=== PATIENT | female | born 1960 | race African-American/Black ===

== ENCOUNTER → 2017-07-12 | Outpatient (CLI) | payer MEDICARE ==
[~2017-07-12] MED LIST: ATACAND32 MG PO; CIPRO500 MG PO; CLEOCIN HCL300 MG PO; CYCLOBENZAPRINE10 MG PO; DIFLUCAN150 MG PO; FLAGYL500 MG PO; LEVOTHROID100 MC1 PO; LEVOTHYROXIN0.088 MG PO; LEXAPRO 10 MG T10 M2 PO; NORCO 5-325 TA1 EACH PO; ONDANSETRON HCL4 M2 PO; SYNTHROID100 MCG PO; TEGRETOL200 MG PO; URSODIOL250 MG PO; XANAX 0.5 MG0.5 M1 PO; ZOFRAN ODT4 MG PO; ZOLOFT25 MG PO; [UNRECOGNIZED DRUG - REMARK]
== END ==
LOC: M.CT 10:36
DX: M16.12 Unilateral primary osteoarthritis, left hip (principal)

== ENCOUNTER → 2017-07-26 | Outpatient (CLI) | payer MEDICARE | LOC: M.MRI 10:25 | DX: R10.11 Right upper quadrant pain (principal); R79.89 Other specified abnormal findings of blood chemistry; K74.3 Primary biliary cirrhosis; Z90.49 Acquired absence of other specified parts of digestive tract ==

== ENCOUNTER → 2017-08-18 | Outpatient (CLI) | payer MEDICARE | LOC: M.MRI 08-11 07:30 | DX: S73.102A Unspecified sprain of left hip, initial encounter (principal); M16.12 Unilateral primary osteoarthritis, left hip; X58.XXXA Exposure to other specified factors, initial encounter; Y93.89 Activity, other specified; Y92.89 Other specified places as the place of occurrence of the external cause; Y99.8 Other external cause status ==

== ENCOUNTER 2018-04-07 06:33 | Inpatient (IN) | payer MEDICARE ==
[~2018-04-07] VITALS: Ht 157.5 cm; Wt 83.9 kg
--- NOTE | ~2018-04-07 | PROC ---
[address] [address] PROCEDURE REPORT Name: ILA PARRISH Room: [address] IN M.R.#: [id number] Admission: 04/07/18 Attend Phys: Calixto Hollis Discharge: 04/11/18 Date of : 56 Report #: [id number] THIS REPORT FOR: //name// For GI report, please see the Provation report in Perceptive 7 content. By: 0702Medical Records Staff ANDREINA /NELLI
--- NOTE | ~2018-04-07 | CON ---
[facility] [address] [place] [address] CONSULTATION Name: ILA PARRISH Room: [address] IN .R.#: [id number] Admission: 04/07/18 Attend Phys: Calixto Hollis Discharge: Date of : 56 Report #: [id number] THIS REPORT FOR: //name// CC: Brian Rubi DATE OF SERVICE: 04/08/2018 INDICATION FOR CONSULT: Elevated liver enzymes and abdominal pain. HISTORY OF PRESENT ILLNESS: This is a 58-year-old female who is well known to me as we have cared for her in our practice for a number of years. The patient with history of primary biliary cirrhosis who is on ursodiol presents with abdominal pain and constipation. She reports that since her hip surgery 8 weeks ago, she has not been able to get her bowels regular. She had some laxative last night and had a small bowel movement, which improved her pain, but has not completely resolved it. Reviewing her liver enzymes, her LFTs are and alkaline phosphatase are elevated. Abdominal ultrasound was essentially unremarkable. PAST MEDICAL HISTORY: Significant for history of primary biliary cirrhosis, hypothyroidism, depression, history of bowel obstruction, hysterectomy, hypertension, left hip replacement, foot and ankle surgery, appendectomy, history of brain tumor and GERD. ALLERGIES: Significant to PROCHLORPERAZINE. MEDICATIONS: Please refer to MAR. SOCIAL HISTORY: The patient lives at home. Denies tobacco or alcohol use. FAMILY HISTORY: Negative for GI malignancies. PHYSICAL EXAMINATION: VITAL SIGNS: Reveals blood pressure 134/75, respirations 16, pulse 88, temperature 98.5. LUNGS: Clear. CARDIOVASCULAR: Regular. ABDOMEN: Soft, tender to palpation in all 4 quadrants. Bowel sounds are positive. NEUROLOGIC: The patient is alert, oriented x 3. There is no focal neurologic deficit. LABORATORY DATA: Reveal sodium of 140, potassium 4.1, BUN is 10, creatinine 0.9, glucose is 144, AST is 159, ALT 143 with alkaline phosphatase of 313, total [facility] [address] [place] [address] CONSULTATION Name: ILA PARRISH Room: [address]#: [id number] Admission: 04/07/18 Attend Phys: Calixto Hollis Discharge: Date of : 56 Report #: [id number] bilirubin is 0.9. WBC is 8.2 with hemoglobin of 12.7 and platelets of 266. IMAGING: Abdominal ultrasound was performed, which shows absent gallbladder and otherwise unremarkable. ASSESSMENT AND PLAN: The patient with history of primary biliary cirrhosis who presents with elevated liver enzymes and generalized abdominal pain and constipation. I believe that her nausea and abdominal pain is from her constipation. She also has gastroesophageal reflux disease, which I believe is complicated and worsened by her severe constipation. If her symptoms of gastroesophageal reflux disease persist, we will consider upper endoscopy. Note that she had a colonoscopy back in June of 2014. This was significant for scattered diverticula and internal hemorrhoids. I will also recommend liver biopsies to assess her elevated liver enzymes as she tells me that she has been on ursodiol. We want to make sure that she has not developed autoimmune hepatitis in addition to her PBC. By: 1305 [id number] Burton MD /nt
[~2018-04-07 06:33] MED LIST changes: -LEVOTHYROXIN0.088 MG PO; +Synthroid 0.088 MG PO
[2018-04-07 06:46] VITALS: BP 164/84
[2018-04-07 07:00] LABS: HEMATOCRIT 38.1 % (37.0-47.0); HEMOGLOBIN 12.7 gm/dL (12.0-15.0); MCH 25.2 pg (26.0-34.0); MCHC 33.3 g/dL (28.0-37.0); MCV 75.8 fL (80.0-100.0); MPV 8.3 fl. (7.2-11.1); NUCLEATED RBCS 0 /100WBC; PLATELET COUNT* 266 thou/uL (150-400); RBC 5.03 mil/uL (4.20-5.00); RDW-CV 14.2 % (10.5-14.5); WBC 8.2 thou/uL (4.0-11.0)
[2018-04-07 07:09] LABS: CALCIUM 9.5 mg/dL (8.5-10.1); CREATININE 0.9 mg/dL (0.6-1.3); POTASSIUM 4.1 mmol/L (3.5-5.1)
[2018-04-07 07:14] LABS: ALBUMIN 3.8 g/dL (3.4-5.0); TOTAL BILIRUBIN 0.9 mg/dL (<0.1-1.0); TOTAL PROTEIN 8.2 g/dL (6.4-8.2)
--- NOTE | 2018-04-07 07:21 | NUR ---
PT REPORTS SHE HAS BEEN FEELING DIZZY. NON-SKID SOCKS WERE PLACED ON PT'S FEET, WARM BLANKET GIVEN TO PATIENT, FLUIDS STARTED AND CALL LIGHT GIVEN TO PATIENT. PT HAS FAMILY AT BEDSIDE, AND PT IS HOOKED UP TO PULSE OX AND CARDIAC MONITORS IN ROOM.
[2018-04-07 07:24] LABS: ABSOLUTE LYMPHOCYTES 0.6 thou/uL (0.8-5.3); ABSOLUTE MONOCYTES 0.2 thou/uL (0.0-1.2); ABSOLUTE NEUTROPHILS 7.4 thou/uL (1.6-8.1)
[2018-04-07 07:25] LABS: ANISOCYTOSIS 1+; PLATELET ESTIMATE ADEQUATE; POIKILOCYTOSIS 1+
[2018-04-07 07:39] LABS: LIPASE 182 U/L (73-393); TROPONIN-I LEVEL <0.06 ng/mL (<0.06)
[2018-04-07 07:51] LABS: URINE BILIRUBIN NEGATIVE (Negative); URINE BLOOD 2+ (Negative); URINE CLARITY CLEAR; URINE COLOR YELLOW; URINE GLUCOSE-RANDOM NEGATIVE (Negative); URINE KETONES NEGATIVE (Negative); URINE LEUKOCYTES-REFLEX NEGATIVE (Negative); URINE NITRITE-REFLEX NEGATIVE (Negative); URINE PROTEIN NEGATIVE (Negative); URINE UROBILINOGEN 0.2 E.U./dl (0.2-1.0)
[2018-04-07 07:59] LABS: SQUAMOUS 4-10 Moderate /LPF (0-3)
[2018-04-07 08:00] LABS: CASTS None Seen /LPF (None Seen); CRYSTALS None Seen /LPF (None Seen); MUCUS 4-6 Moderate strn/LPF (None Seen); URINE RBC 3-10 Few /HPF (0-2); URINE WBC-REFLEX 0-5 Rare /HPF (0-5)
[2018-04-07 08:25] VITALS: BP 173/75
[2018-04-07 08:45] VITALS: BP 158/86
[2018-04-07 12:14] VITALS: BP 120/60
--- NOTE | 2018-04-07 12:50 | NUR ---
INITIAL ASSESSMENT: Pt evaluated for d/c planning needs. Reviewed chart and spoke with nurse and pt. Pt is alert and oriented. Pt plans on returning home with family on d/c from hospital. Will remain available to assist as needed.
[2018-04-07 17:02] VITALS: BP 156/92
--- NOTE | 2018-04-07 18:53 | NUR ---
ALERT AND ORIENTED X4. UP WITH ASSIST X1 WITH GAIT BELT TO THE BATHROOM. IV IS PATENT AND INFUSING. PAIN BEING MANAGED WITH IV AND PO PAIN MEDICATION. NAUSEA BEING MANAGED WITH IV NAUSEA MEDICATION. NPO AT THIS TIME. VSS ON ROOM AIR. FALL PRECAUTIONS IN PLACE. HOURLY ROUNDS HAVE BEEN MAINTAINED THROUGHOUT SHIFT. CALL LIGHT IS WITHIN REACH.
[2018-04-07 20:45] VITALS: BP 136/77
--- NOTE | 2018-04-08 06:12 | NUR ---
PATIENT SLEPT WELL OFF AND ON DURING THE NIGHT. VSS ON RA. PATIENT HAS REMAINED NPO. MEDICATIONS GIVEN ORDERED AND CHARTED. NO C/O NAUSEA. IV IN LEFT AC-NS @ 100ML/HR. PATIENT INSTRUCTED TO USE CALL LIGHT WHEN NEEDING ASSISTANCE. HOURLY ROUNDS MADE. WILL CONTINUE WITH PLAN OF CARE AND NURSING TO MONITOR.
[2018-04-08 08:20] VITALS: BP 134/75
--- NOTE | 2018-04-08 17:55 | NUR ---
PT REMAINED ALERT AND ORIENTED THIS SHIFT. PT WILL HAVE LIVER BIOPSY COMPLETED TUESDAY. PT C/O NAUSEA, ZOFRAN GIVEN ORDERED. PT ABD DISTENDED AND PT C/O CONSTIPATION, MAG CITRATE ORDERED AND SIMETHICONE SCHEDULED. FALL RISK PRECAUTIONS IN PLACE. HOURLY ROUNDING COMPLETED. WILL CONTINUE TO MONITOR.
[2018-04-08 20:00] VITALS: BP 159/71
[2018-04-09 04:06] LABS: ALBUMIN 2.9 g/dL (3.4-5.0); DIRECT BILIRUBIN 0.1 mg/dL (<0.1-0.3); TOTAL BILIRUBIN 0.2 mg/dL (<0.1-1.0); TOTAL PROTEIN 6.3 g/dL (6.4-8.2)
--- NOTE | 2018-04-09 04:55 | NUR ---
PT REMAINED A&Ox4. VITALS STABLE. PT ON CLEAR LIQUID DIET. IV IN L AC PATENT, INFUSING. PAIN AND NAUSEA CONTROLLED WITH CURRENT REGIMEN. UP WITH STAND BY ASSIST. PLANS TO GET LIVER BIOPSY TUESDAY. HOURLY ROUNDING COMPLETE. CALL LIGHT WITHIN REACH. WILL CONTINUE TO MONITOR.
[2018-04-09 08:15] VITALS: BP 156/81
[2018-04-09 16:25] VITALS: BP 162/89
--- NOTE | 2018-04-09 17:33 | NUR ---
ALERT AND ORIENTED X4. UP WITH STAND BY ASSIST IN ROOM. IV IS PATENT AND INFUSING. DENIES NEED FOR PAIN MEDICATION THIS SHIFT. NAUESA BEING MANAGED WITH IV NAUSEA MEDICATION. TOLERATING DIET. VSS ON ROOM AIR. HOURLY ROUNDS HAVE BEEN MAINTAINED THROUGHOUT SHIFT. CALL LIGHT IS WITHIN REACH. NURSING WILL CONTINUE TO MONITOR.
[2018-04-09 20:00] VITALS: BP 134/51
[2018-04-10 04:27] LABS: ABSOLUTE EOSINOPHILS 0.1 thou/uL (0.0-0.7); ABSOLUTE LYMPHOCYTES 1.9 thou/uL (0.8-5.3); ABSOLUTE MONOCYTES 0.4 thou/uL (0.0-1.2); ABSOLUTE NEUTROPHILS 2.5 thou/uL (1.6-8.1); BASOPHILS 0.3 %; EOSINOPHILS 1.7 %; HEMATOCRIT 32.1 % (37.0-47.0); HEMOGLOBIN 10.8 gm/dL (12.0-15.0); LYMPHOCYTES 38.9 %; MCH 25.8 pg (26.0-34.0); MCHC 33.7 g/dL (28.0-37.0); MCV 76.6 fL (80.0-100.0); MONOCYTES 7.6 %; MPV 8.5 fl. (7.2-11.1); NUCLEATED RBCS 0 /100WBC; PLATELET COUNT* 225 thou/uL (150-400); POLYS 51.5 %; RBC 4.19 mil/uL (4.20-5.00); RDW-CV 14.7 % (10.5-14.5); WBC 4.9 thou/uL (4.0-11.0)
[2018-04-10 04:42] LABS: APTT 25.8 Seconds (25.0-31.3)
--- NOTE | 2018-04-10 04:44 | NUR ---
PT REMAINED A&Ox4. VITALS STABLE. UP STAND BY ASSIST. PT STATED WANTED TO GO TO THE BATHROOM BY HERSELF AND BED ALARMS OFF DURING THE SHIFT. FALL BAND ON, YELLOW SOCKS ON, EDUCATED ON FALL RISKS. IV IN L AC PATENT, INFUSING. PAIN CONTROLLED WITH NORCO. NAUSEA CONTROLLED WITH ZOFRAN. HOURLY ROUNDING COMPLETE. CALL LIGHT WITHIN REACH. AT BEDSIDE. WILL CONTINUE TO MONITOR.
[2018-04-10 08:25] VITALS: BP 165/92
[2018-04-10 09:43] VITALS: BP 165/92
[2018-04-10 10:18] VITALS: BP 165/92
[2018-04-10 12:05] VITALS: BP 143/55
--- NOTE | 2018-04-10 12:18 | NUR ---
PT RETURNED FROM EGD. PT IS ALERT AND ORIENTED. ON ROOM AIR. PT IS NPO, ORDERS FOR LIVER BIOPSY TODAY. FALL RISK PRECAUITONS IN PLACE. HOURLY ROUNDING COMPLETED. WILL CONTINUE TO MONITOR.
--- NOTE | 2018-04-10 14:11 | NUR ---
JAVA LEAD SPOKE TO THE PATIENT TO DISCUSS DISCHRGE PLANNING NEEDS. PATIENT INFORMS THAT THE PLAN REMAINS TO RETURN HOME WITH FAMILY AT D/C, AND DOES NOT ANTICIPATE ANY DISCHARGE PLANNING NEEDS. CM WILL REMAIN AVIALABLE TO ASSIST AND FOLLOW NEEDED.
--- NOTE | 2018-04-10 15:48 | EKG ---
[place] [address] ELECTROCARDIOGRAM REPORT Name: ILA PARRISH Room: [address] ADM IN M.R.#: [id number] Admission: 04/07/18 Attend Phys: Calixto Hollis Discharge: Date of : 56 Report #: [id number] THIS REPORT FOR: //name// [facility] Test Date: 2018-04-10 Test Time: 09:50:46 Pat Name: ILA PARRISH Department: Room: [address] Gender: F Imcu Specialist: : 1960 Requested By: Eli Burton Order Number: [id number] Kwaku MD: Alex Hollins Measurements Intervals [place] Rate: 68 P: 44 MA: 154 QRS: 53 QRSD: 98 T: 25 QT: 423 QTc: 450 Interpretive Statements Sinus rhythm Compared to ECG 05/11/2015 17:37:03 rate has slowed Electronically Signed On 04-10-2018 15:48:01 PRODUCTION MAINTENANCE TECHNICIAN by Alex Hollins [email or web address] <ELECTRONICALLY SIGNED> By: Alex Hollins MD, [facility] 04/10/18 1548 D: 01/949 9 Alex Hollins MD, FACC /EPI
[2018-04-10 16:00] VITALS: BP 139/60
[2018-04-10 16:10] LABS: ANA INTERPRETATION Negative (Negative)
--- NOTE | 2018-04-10 17:04 | NUR ---
PT REMAINED ALERT AND ORIENTED. PT HAD AN EGD COMPLETED TODAY, FOUND SMALL HIATAL HERNIA. PT DENIED ANY N/V OR PAIN THIS SHIFT. PT IS ON REGULAR DIET. LIVER BIOPSY TOMORROW SCHEDULED, NPO AFTER MIDNIGHT. FALL RISK PRECAUTIONS IN PLACE. HOURLY ROUNDING COMPLETED. WILL CONTINUE TO MONITOR.
[2018-04-10 19:20] VITALS: BP 155/80
--- NOTE | 2018-04-10 22:02 | NUR ---
PT ASSESSMENT COMPLETE, REFER TO COMPUTER CHARTING FOR DETAILS. PT C/O ABD PAIN, PRN HDROCODONE GIVEN WITH GOOD RESULTS. PT ALSO C/O NAUSEA, ORN IV ZOFRAN GIVEN WITH GOOD RESULTS. VSS. PT UP TO BR WITH STEADY GAIT. HOURLY ROUNDING FOR PT SAFETY. CLWR.
[2018-04-11] VITALS (10 sets, daily range): BP systolic 148–164; BP diastolic 64–90
--- NOTE | 2018-04-11 06:17 | NUR ---
PT HAS REMAINED STABLE AND SLEPT T/O THIS SHIFT. NO NEW CONCERNS AT THIS TIME. HOURLY ROUNDING FOR SAFETY.
[2018-04-11] MEDS ORDERED: HYDROCODON-ACE1 EAC7 PO (10:33)
[2018-04-11] MEDS ORDERED: SENNA PLUS TAB1 EACH PO (10:33)
[2018-04-11] MEDS ORDERED: PANTOPRAZOLE SO40 M1 PO (10:33)
[2018-04-11] MEDS ORDERED: MIRALAX17 GM PO (10:33)
--- NOTE | 2018-04-11 16:05 | NUR ---
ASSUMED CARE OF PATIENT AT APPROX 0730. ALERT AND ORIENTED X4. ASSESSMENT COMPLETED AND CHARTED. VSS ON ROOM AIR. NO COMPLAINTS OF NAUSEA, PAIN, OR SOA. LIVER BIOPSY COMPLETED. PATIENT VITALS MONITORED AND REMAINED STABE AFTER BIAOPSY. NO COMPLAINTS OF INCREASED PAIN AT BIOPSY SITE OR COMPLAINTS OF SOA. PATIENT DISCHARGED AT APPROX 1300 WITH ALL PERSONAL BELONGINGS, PRESCRIPTIONS AND DISCHARGE INFORMATION.
--- NOTE | 2018-04-14 12:05 | PATH ---
[place] [address] PATHOLOGY RPT PROCEDURE Name: ILA PARRISH Room: [address] IN [facility]#: [id number] Admission: 04/07/18 Date of : 56 Discharge: 04/11/18 Report #: [id number] Path Case #: [id number] [facility] Accession Number: [id number] . 01 Material submitted: . LIVER BIOPSY . 01 Clinical history: . History of elevated LFTs, biliary cirrhosis This patient is reported to have a history of primary biliary cirrhosis presently on Ursodiol who presents with abdominal pain and constipation and elevated liver enzymes (consultation report by Dr. Eli Orantes dated 04/08/2018). (04/07/2018) AST 159, T-bili 0.9, alk phos 313, ALT 143, GGTP 201 (04/09/2018) AST 34, T-bili 0.2, alk phos 212, ALT 68, HERNANDEZ direct-negative, mitochondria antibody less than 20, smooth muscle antibody 11/negative. . 02 Diagnosis: Liver biopsy: - Benign liver with minimal bile duct injury, minimal lobular inflammation, less than 5% steatosis, mild sinuosoidal dilatation and no evidence of fibrosis. See comment. (WOOD:luci; 04/13/2018) QMS/04/13/2018 . 02 Comment: The biopsies reveal benign liver with easily identified, mostly normal bile ducts and, at most minimal injury evidenced by a rare intraductal neutrophil and without significant fibrosis or steatosis seen. Minimal lobular inflammation is noted and there are no significant plasma cells or eosinophils or granulomas seen. Properly controlled special stains performed on each of blocks A1 through A3 all show the same findings as follows: . PAS with and without diastase: No positive globules. Iron: No stainable increase. Reticulin: Normal hepatic plates. Trichrome: No significant fibrosis. . The current findings appear to be improved from that reported in the prior liver biopsy performed around 12/2008 (report [id number]) and there is no evidence of autoimmune hepatitis. The current findings may be related to drugs/medications. . Reviewed with Dr. Inna Chaney, who agrees with the diagnosis. (OWOD:luci; 04/13/2018) . [place] [address] PATHOLOGY RPT PROCEDURE Name: ILA PARRISH Room: [address] IN M.R.#: [id number] Admission: 04/07/18 Date of : 56 Discharge: 04/11/18 Report #: [id number] Path Case #: [id number] . . . . . . . . . . . . . . . . . . 02 Electronically signed: . Declan William MD, Pathologist NPI- [id number] . 01 Gross description: . The specimen is received in formalin, labeled "Lindsey, Ila, liver BX", are several trevino-brown needle cores ranging from 0.4 cm up to 1.5 cm in length with an average 0.1 cm diameter. The specimen is entirely submitted in A1-A3. ([facility]; 04/11/2018) SHS/ . 02 Pathologist provided ICD-10: K76.9 . 02 CPT . 036626, 745794, 868895, 918377, 221145, 369783, 553129, 313058, 783209, 352798, 581766, 694832, 703433 Specimen Comment: A courtesy copy of this report has been sent to Specimen Comment: [phone], , , . Specimen Comment: Report sent to ,DR ORANTES,DR ELDER / DR WILKES Specimen Comment: A duplicate report has been generated due to demographic updates. Performed at: 01 [facility] [address], [place], [place] [id number] MD Faustino Hoffman MD Phone: [phone] Performed at: [address] [facility] [address] [id number] MD Declan William MD Phone: [phone]
== END 2018-04-11 13:00 | disposition home or self-care (01) | DRG 441 ==
LOC: M.ERS 06:33 → M.TBA-ER 08:05 → M.ORTHSURG 08:05
PROVIDERS: Emergency Medicine; Internal Medicine Gastroenterology; ADMIT Internal Medicine
PROC: 0DJ08ZZ Inspection of Upper Intestinal Tract, Via Natural or Artificial Opening Endoscopic (ICD-10-PCS; principal; 2018-04-10)
PROC: 0FB13ZX Excision of Right Lobe Liver, Percutaneous Approach, Diagnostic (ICD-10-PCS; 2018-04-11)
DX: B17.9 Acute viral hepatitis, unspecified (principal); R65.11 Systemic inflammatory response syndrome (SIRS) of non-infectious origin with acute organ dysfunction; E44.1 Mild protein-calorie malnutrition; A08.4 Viral intestinal infection, unspecified; K74.3 Primary biliary cirrhosis; K76.89 Other specified diseases of liver; Z96.642 Presence of left artificial hip joint; E03.9 Hypothyroidism, unspecified; E86.0 Dehydration; K44.9 Diaphragmatic hernia without obstruction or gangrene; F32.9 Major depressive disorder, single episode, unspecified; K21.9 Gastro-esophageal reflux disease without esophagitis; I10 Essential (primary) hypertension; K59.00 Constipation, unspecified; Z90.49 Acquired absence of other specified parts of digestive tract; Z68.33 Body mass index [BMI] 33.0-33.9, adult; Z90.710 Acquired absence of both cervix and uterus; Z88.8 Allergy status to other drugs, medicaments and biological substances

== ENCOUNTER → 2019-01-09 | Outpatient (CLI) | payer MEDICARE ==
[~2019-01-09] MED LIST changes: +HYDROCODON-ACE1 EAC7 PO; +MIRALAX17 GM PO; +PANTOPRAZOLE SO40 M1 PO; +SENNA PLUS TAB1 EACH PO
== END ==
LOC: M.CT 10:32
DX: S92.812K Other fracture of left foot, subsequent encounter for fracture with nonunion (principal); M19.072 Primary osteoarthritis, left ankle and foot; X58.XXXD Exposure to other specified factors, subsequent encounter

== ENCOUNTER → 2021-03-18 | Day surgery (SDC) | payer MEDICARE ==
[~2021-03-18] MED LIST changes: +ADVIL200 M3 PO; +ATACAND16 MG PO; +MELATONIN10 M3 PO; +PROTONIX40 M2 PO; +ZOLOFT 50 MG TA50 MG PO; +ZONEGRAN100 MG PO
--- NOTE | ~2021-03-18 | PROC ---
[address] [address] PROCEDURE REPORT Name: STNATON PARRISHEE Itzel Room: [facility]#: [id number] Admission: 03/18/21 Attend Phys: Peter Jin DO Discharge: Date of : 56 Report #: [id number] THIS REPORT FOR: cc: Brian Galvez MD, Dean L. MD [facility],Medical Records Staff ~ For GI report, please see the Provation report in Perceptive 7 content. By: 1401Medical Records Staff STEVEN /NELLI
[2021-03-18 08:56] LABS: HEMATOCRIT 36.8 % (37.0-47.0); HEMOGLOBIN 12.4 gm/dL (12.0-15.0); MCH 25.5 pg (26.0-34.0); MCHC 33.6 g/dL (28.0-37.0); MPV 7.9 fl. (7.2-11.1); RBC 4.84 mil/uL (4.20-5.00); RDW-CV 14.5 % (10.5-14.5); WBC 8.9 thou/uL (4.0-11.0)
[2021-03-18 09:02] LABS: CALCIUM 9.2 mg/dL (8.5-10.1); POTASSIUM 3.6 mmol/L (3.5-5.1)
--- NOTE | 2021-03-18 10:57 | EKG ---
[place] [address] ELECTROCARDIOGRAM REPORT Name: ILA PARRISH Itzel Room: [facility]#: [id number] Admission: 03/18/21 Attend Phys: Peter Jin, Discharge: Date of : 56 Date of Service: 03/18/[address] Report #: [id number] THIS REPORT FOR: //name// [facility] Test Date: 2021-03-18 Test Time: 09:04:44 Pat Name: ILA PARRISH Department: Room: Gender: F Long Filler Cigar Roller Machine: BENIGNO : 1960 Requested By: Peter Jin Order Number: [id number] Kwaku MD: Daniel Rojo Measurements Intervals [place] Rate: 70 P: 66 AR: 163 QRS: 64 QRSD: 97 T: 39 QT: 409 QTc: 442 Interpretive Statements Sinus rhythm Compared to ECG 04/10/2018 09:50:46 No significant changes Electronically Signed On 03-18-2021 10:57:47 PLANT ANATOMY TEACHER by Daniel Rojo [email or web address] <ELECTRONICALLY SIGNED> By: Daniel Rojo MD, [facility] 03/18/21 1057 Daniel Rojo MD, [facility] /EPI
--- NOTE | 2021-03-23 18:06 | PATH ---
[facility] [address] [place] [address] PATHOLOGY RPT PROCEDURE Name: ILA PARRISH Room: [facility]#: [id number] Admission: 03/18/21 Date of : 56 Discharge: Report #: [id number] Path Case #: [id number] [facility] Accession Number: [id number] . 01 Material submitted: . PART A: colon - PROXIMAL ASCENDING COLON POLYP X2 COLD SNARE. Modifiers: proximal, ascending PART B: colon - PROXIMAL TRANSVERSE COLON POLYP. Modifiers: transverse, proximal . 01 Clinical history: . EGD AND COLONOSCOPY DYSPHAGIA, ACID REFLUX . 02 Diagnosis: A. Proximal ascending colon polyp x 2 (cold snare): - Two tubular adenomas, negative for high-grade dysplasia. . B. Proximal transverse colon polyp: - Tubular adenoma, negative for high-grade dysplasia. (WOOD:pit; 03/23/2021) QTP 03/23/2021 1453 Local . 02 Electronically signed: . Declan William MD, Pathologist NPI- [id number] . 01 Gross description: . A. The specimen is received in formalin, labeled "Ila Parrish, proximal ascending colon polyp x 2" and consists of 2 trevino irregular tissue aggregating 0.2 x 0.1 x 0.1 cm which are submitted in toto in A1. . B. The specimen is received in formalin, labeled "Lindsey, Ila, proximal transverse colon polyp cold snare" and consists of a trevino soft irregular tissue measuring 0.3 x 0.2 x 0.1 cm which is submitted in toto in B1.([place]; 03/19/2021) DKA/ISMAA 03/19/2021 1019 Local . 02 Pathologist provided ICD-10: D12.2, D12.3 . 02 CPT . 907826, 581769 Specimen Comment: A courtesy copy of this report has been sent to [phone] Specimen Comment: [phone] Specimen Comment: Report sent to / DR WILKES Performed at: 01 [place] [address] PATHOLOGY RPT PROCEDURE Name: ILA PARRISH Itzel Room: [facility]#: [id number] Admission: 03/18/21 Date of : 56 Discharge: Report #: [id number] Path Case #: [id number] [facility] [address], [place], [place] [id number] MD Donavan Thomson MD Phone: [phone] Performed at: 02 [facility] [address], [place], [place] [id number] MD Declan William MD Phone: [phone]
== END | disposition home or self-care (01) ==
LOC: M.SUR 08:16
PROVIDERS: ATTEND Internal Medicine Gastroenterology
DX: Z12.11 Encounter for screening for malignant neoplasm of colon (principal); Z83.71 Family history of colonic polyps; D12.2 Benign neoplasm of ascending colon; D12.3 Benign neoplasm of transverse colon; K57.30 Diverticulosis of large intestine without perforation or abscess without bleeding; K64.4 Residual hemorrhoidal skin tags; K21.9 Gastro-esophageal reflux disease without esophagitis; K44.9 Diaphragmatic hernia without obstruction or gangrene; Z20.822 Contact with and (suspected) exposure to COVID-19; Z79.899 Other long term (current) drug therapy

== ENCOUNTER 2021-05-08 12:56 | Emergency (ER) | payer MEDICARE ==
[~2021-05-08] VITALS: Ht 157.5 cm; Wt 83.5 kg
[2021-05-08 13:31] LABS: URINE BILIRUBIN NEGATIVE (Negative); URINE BLOOD 1+ (Negative); URINE CLARITY CLEAR; URINE COLOR YELLOW; URINE GLUCOSE-RANDOM NEGATIVE (Negative); URINE KETONES NEGATIVE (Negative); URINE LEUKOCYTES NEGATIVE (Negative); URINE NITRITE NEGATIVE (Negative); URINE PROTEIN NEGATIVE (Negative); URINE UROBILINOGEN 0.2 E.U./dl (0.2-1.0)
[2021-05-08 13:38] LABS: BACTERIA >30 Many /HPF (None Seen); CASTS None Seen /LPF (None Seen); MUCUS >6 Heavy strn/LPF (None Seen); SQUAMOUS >10 Many /LPF (0-3); URINE RBC 0-2 Rare /HPF (0-2); URINE WBC None Seen /HPF (0-5)
[2021-05-08 13:39] LABS: CRYSTALS None Seen /LPF (None Seen)
[2021-05-08 13:51] LABS: ABSOLUTE LYMPHOCYTES 2.5 thou/uL (0.8-5.3); ABSOLUTE MONOCYTES 0.4 thou/uL (0.0-1.2); ABSOLUTE NEUTROPHILS 4.1 thou/uL (1.6-8.1); BASOPHILS 0.5 %; EOSINOPHILS 0.5 %; HEMATOCRIT 37.7 % (37.0-47.0); HEMOGLOBIN 12.4 gm/dL (12.0-15.0); LYMPHOCYTES 35.6 %; MCH 25.3 pg (26.0-34.0); MCHC 32.8 g/dL (28.0-37.0); MCV 77.2 fL (80.0-100.0); MONOCYTES 5.4 %; NUCLEATED RBCS 0 /100WBC; PLATELET COUNT* 298 thou/uL (150-400); RBC 4.88 mil/uL (4.20-5.00); RDW-CV 14.6 % (10.5-14.5)
[2021-05-08 14:03] LABS: POTASSIUM 4.2 mmol/L (3.5-5.1)
[2021-05-08 14:07] LABS: ALBUMIN 3.6 g/dL (3.4-5.0); TOTAL BILIRUBIN 0.5 mg/dL (<0.1-1.0); TOTAL PROTEIN 7.8 g/dL (6.4-8.2)
[2021-05-08] MEDS ORDERED: ZOFRAN ODT4 MG DISSOLVE (15:36)
[2021-05-08] MEDS ORDERED: HYDROCODON-ACE1 EAC7 PO (15:36)
--- NOTE | 2021-05-08 15:57 | EKG ---
[place] [address] ELECTROCARDIOGRAM REPORT Name: SHIVANISTANTONILA Itzel Room: [facility]#: [id number] Admission: 05/08/21 Attend Phys: Discharge: Date of : 56 Date of Service: 05/08/21 1438 Report #: [id number] THIS REPORT FOR: //name// [facility] ED Test Date: 2021-05-08 Test Time: 14:38:33 Pat Name: ILA PARRISH Department: Room: Gender: F Back Office Medical Assistant: Maryam : 1960 Requested By: Viet Mason Order Number: [id number] MD: Alex Hollins Measurements Intervals [place] Rate: 72 P: 24 CO: 144 QRS: 68 QRSD: 91 T: 48 QT: 418 QTc: 458 Interpretive Statements Sinus rhythm Compared to ECG 03/18/2021 09:04:44 No significant changes Electronically Signed On 05-08-2021 15:56:38 VOCATIONAL HORTICULTURE INSTRUCTOR by Alex Hollins [email or web address] <ELECTRONICALLY SIGNED> By: Alex Hollins MD, [facility] 05/08/21 1556 1438 1438 Alex Hollins MD, FACC /EPI
[2021-05-08 16:00] VITALS: BP 164/80
== END 2021-05-08 16:00 | disposition home or self-care (01) ==
LOC: M.ERS 12:56
PROVIDERS: Emergency Medicine Emergency Medical Services
DX: R10.11 Right upper quadrant pain (principal); I10 Essential (primary) hypertension; E03.9 Hypothyroidism, unspecified; Z90.49 Acquired absence of other specified parts of digestive tract; Z90.710 Acquired absence of both cervix and uterus; Z79.899 Other long term (current) drug therapy; Z88.8 Allergy status to other drugs, medicaments and biological substances